=== PATIENT | female | born 1960 | race Caucasian/White ===

== ENCOUNTER → 2016-12-29 | Day surgery (SDC) | payer OTHER ==
[2016-12-17 14:23] VITALS: BMI 23.6
[~2016-12-29] MED LIST: BUPIVACAINE HCL/PF 0.25% (2.5MG/ML) 10 ML VIAL IJ ONE; BUPIVACAINE HCL/PF 2.5 MG/ML - 30 ML VIAL IJ ONE; DEXAMETHASONE SOD PHOSPHATE 4 MG/1 ML VIAL ONE; LIDOCAINE 1%/EPI 1:100000 (20 ML MULTI DOSE VIAL) ONE; LIDOCAINE 1%/EPI 1:100000 (50 ML MULTI DOSE VIAL) INF ONE; MIDAZOLAM HCL 2 MG/2 ML SINGLE DOSE VIAL ONE; ONDANSETRON 4 MG/2 ML VIAL IVPUSH PRN; ONDANSETRON 4 MG/2 ML VIAL ONE; PROMETHAZINE HCL 25 MG/1 ML VIAL IVPUSH PRN; PROPOFOL 20 ML ONE; SUCCINYLCHOLINE CHLORIDE 200 MG/10 ML VIAL ONE; THROMBIN (BOVINE) 5,000 UNIT VIAL TP ONE; ceFAZolin SODIUM 1 GM VIAL ONE; ePHEDrine SULFATE 50 MG/1 ML AMPULE ONE; methylPREDNISolone ACET (DEPO) 40 MG/1 ML VIAL IM ONE; methylPREDNISolone ACET (DEPO) 40 MG/1 ML VIAL ONE; oxyCODONE HCL 10 MG SUSTAINED ACTING TABLET ONE; oxyCODONE HCL 10 MG SUSTAINED ACTING TABLET PO ONE; oxyCODONE HCL 5 MG TABLET ONE; oxyCODONE HCL 5 MG TABLET PO PRN
--- NOTE | 2016-12-29 07:54 | HP ---
Admitting History and Physical - Admission History of Present Illness: 56 yo female with a PMHX of thyroid disease. Presents today for a laminectomy of L4-L5. Over the past year, she has had 4 epidural injections for pain. She has experienced pain over the past several years but it increased in intensity over the past year. The pain is in her right lower leg with associated numbness and tingling. No weakness. No CP, SOB or fevers recently. History Source: Patient Limitations to Obtaining History: No Limitations - Past Medical History Cardiovascular: No: Deep Vein Thrombosis, HTN Pulmonary: Yes: Asthma (as a child), Sleep Apnea Gastrointestinal: Yes: GERD. No: Gastritis Renal/: No: Hematuria, UTI Heme/Onc: No: Bleeding Disorder - Past Surgical History Additional Past Surgical History: lalparoscopic surgery for endometriosis - Advance Directives Advance Directives: Yes: Health Care Proxy - Smoking History Smoking history: Current every day smoker Have you smoked in the past 12 months: Yes Aproximately how many cigarettes per day: 3 - Alcohol/Substance Use Hx Alcohol Use: Yes (rare) Home Medications - Allergies Allergies/Adverse Reactions: Allergies Allergy/AdvReac Type Severity Reaction Status Date / Time Penicillins Allergy Verified 12/17/16 14:29 - Home Medications Home Medications: Ambulatory Orders Levothyroxine [Synthroid -] 88 mcg PO DAILY 12/17/16 Omeprazole 40 mg PO DAILY 12/17/16 Review of Systems - Review of Systems Constitutional: denies: Chills, Fever Neck: denies: Decreased ROM, Pain on Movement Cardiovascular: denies: Chest Pain, Edema, Palpitations Respiratory: denies: Cough, SOB Gastrointestinal: denies: Abdominal Pain, Nausea Genitourinary: denies: Burning, Dysuria, Hematuria, Incontinence Musculoskeletal: reports: Back Pain, Extremity Pain (righ leg). denies: Decreased ROM Neurological: denies: Headache, Seizure Hematology/Lymphatic: reports: Excessive Bleeding. denies: Easily Bruised Physical Examination Vital Signs: Vital Signs Temperature 97.9 F 12/29/16 06:55 Pulse Rate 58 L 12/29/16 06:55 Respiratory Rate 18 12/29/16 06:55 Blood Pressure 121/74 12/29/16 06:55 O2 Sat by Pulse Oximetry (%) 100 12/29/16 06:55 Constitutional: Yes: Well Nourished, No Distress, Calm Eyes: Yes: Conjunctiva Clear. No: Sclera Icterus HENT: Yes: WNL, Atraumatic, Normocephalic Neck: Yes: WNL, Supple, Trachea Midline Cardiovascular: Yes: WNL, Regular Rate and Rhythm Respiratory: Yes: WNL, Regular, CTA Bilaterally Gastrointestinal: Yes: WNL, Normal Bowel Sounds, Soft Edema: No Peripheral Pulses WNL: Yes Peripheral Pulses: Left Doralis Pedis: 2+, Right Dorsalis Pedis: 2+ Neurological: Yes: WNL, Alert, Oriented ...Motor Strength: LUE, LLE, RUE, RLE Psychiatric: Yes: WNL, Alert, Oriented Assessment/Plan A/P: 56 yo female for laminectomy of L4-L5 today she remains npo for her surgery DVT ppx with SCDs/early ambulation IV abx at time of surgery medical/cardiac clearance in her chart
--- NOTE | 2016-12-29 10:09 | OP ---
Operative Note - Note: Operative Date: 12/29/16 Pre-Operative Diagnosis: spinal stenosis L4-L5 Operation: laminectomy of L4-L5 Post-Operative Diagnosis: Same as Pre-op Surgeon: Steven Reyes [employer] Associate: Christie Bang Anesthesiologist/DRY JANITOR: Deep Mcdonald Anesthesia: Spinal Estimated Blood Loss (mls): 20 Fluid Volume Replaced (mls): 600 Operative Report Dictated: Yes
--- NOTE | 2016-12-29 10:10 | SURG ---
Surgery Clin Nurse Spec Note Clin Nurse Spec: Christie Bang PA-C Date of Service: 12/29/16 Diagnosis: lumbar stenosis of L4-L5 Procedure: laminectomy of L4-L5 I was present for the entirety of the operative procedure. For further detail, please refer to operative report. Visit type - Case Type Case Type: Scheduled Admission - Emergency Emergency Visit: No - New patient This patient is new to me today: Yes Date on this admission: 12/29/16 - Critical Care Critical Care patient: No
[2016-12-29 12:39] VITALS: TEMP 98.2
[2016-12-29 13:54] VITALS: BP 114/60; PULSE 70
--- NOTE | 2016-12-30 16:33 | OP ---
DATE OF OPERATION: 12/29/2016 PREOPERATIVE DIAGNOSIS: Spinal stenosis, L4-L5. POSTOPERATIVE DIAGNOSIS: Spinal stenosis, L4-L5. PROCEDURE PERFORMED: Laminectomy, L4-L5. SURGEON: Steven Reyes MD TRAFFIC SUPERINTENDENT: KENNY Dao ESTIMATED BLOOD LOSS: Fifty milliliters INTRAVENOUS FLUIDS: Per Anesthesia. ANESTHESIA: Spinal. COMPLICATIONS: There were none. DISPOSITION: The patient was brought to the PACU in stable condition. INDICATIONS FOR SURGERY: The patient is a 56-year-old female who is suffering from pain from her back down in her legs. X-rays and MRI were both completed that noted that she had spinal stenosis at L4-5. She had gone through an exhaustive course of treatment for this which included medications, physical therapy, as well as injections. Unfortunately, pain continued to persist, despite all of this. At this point, risks, benefits, and alternatives were discussed, and the patient consented to surgery. OPERATIVE NOTE: The patient was brought to the operating room by the anesthesia staff. After appropriate patient identification was performed, spinal anesthesia was administered. SCDs were placed on the patient. The patient was placed prone onto the OR table with all areas of bony prominences well padded at this time. Two needles were placed in through the back to ranjana off the L4-5 segment and x-rays taken to confirm this was correct. Needle was removed and 10 mL of lidocaine with epinephrine was injected into her back, at this time. Her back was prepped and draped in a sterile manner. At this point, a timeout was completed. An incision was made from the top of L4 down to the bottom of L5. Dissection was carried down to the fascia. The fascia was split open, at this time. Appropriate retractors were then placed and a spinal needle was placed onto the L4 lamina to ranjana off the L4-5 level and x-rays taken to confirm this was correct. Needle was removed and the microscope was brought in. The interspinous ligament at L4-5 was removed. Portions of the L4 and L5 spinous processes were removed. The flavum was identified and was peeled off. Using a series of Kerrisons and curettes, a full decompression was performed such that by the end of the procedure, the L5 nerve root appeared to be well decompressed. All bleeding was well controlled at this time. Steroid was placed over the nerve root. Floseal was placed over that. The fascia was closed with a number 1 Vicryl suture. The subcutaneous tissues were closed with 2-0 Vicryl suture. Skin was closed with 3-0 Monocryl suture. Dermabond was applied. Steri-Strips were applied. A sterile dressing was applied. The patient was placed supine on the OR bed and brought to the PACU in stable condition. Rogerio BARTLETT/[id number] MTDD
--- NOTE | 2017-01-01 17:10 | HOSP ---
Subjective - Review of Symptoms Events since last encounter: Received call from Roxanna at [facility] in [place]. Vicoprofen is not available at the pharmacy but is available at [facility] in [place]. I spoke with KENNY Fox and I resubmitted the prescription electronically to [facility] at [address] [place] [address] in [place]. Roxanna was made aware and she notified the patient.
== END | disposition home or self-care (01) ==
LOC: FASU 06:24
PROVIDERS: ATTEND Orthopaedic Surgery Orthopaedic Surgery of the Spine
PROC: 01NB0ZZ Release Lumbar Nerve, Open Approach (ICD-10-PCS; principal; 2016-12-29 08:20)
DX: M48.06 Spinal stenosis, lumbar region (principal)
CPT/HCPCS: 72100-TC; 76000-TC; 94760